=== PATIENT | female | born 1940 ===

== ENCOUNTER 2018-07-29 09:11 | Inpatient (IN) | payer MEDICARE, BC ==
--- NOTE | 2018-07-29 09:49 | ED PDOC ---
Arrival/HPI - General Historian: Patient - History of Present Illness Narrative History of Present Illness (Text): 07/29/18 09:55 77yo female with pmhx of Ulcerative Colitis who present with complaint of right flank pain x 3days. States she saw her Urologist on Friday, but her pain became more constant and worse today. Reports history of kidney stone 3years ago. Denies hematuria, fever, chills, nausea,vomiting, dysuria, urinary frequency/hesitancy, chest pain, SOB, ripping/tearing upper back pain. Past Medical History - Provider Review Nursing Documentation Reviewed: Yes - Infectious Disease Hx of Infectious Diseases: None - Tetanus Immunization Tetanus Immunization: Unknown - Past Medical History Past Medical History: No Previous - Cardiac Hx Cardiac Disorders: No - Pulmonary Hx Respiratory Disorders: No - Neurological Hx Neurological Disorder: No - HEENT Hx HEENT Disorder: No - Renal Hx Renal Disorder: No Hx Kidney Stones: No - Endocrine/Metabolic Hx Endocrine Disorders: No - Hematological/Oncological Hx Blood Disorders: No - Integumentary Hx Dermatological Disorder: No - Musculoskeletal/Rheumatological Hx Musculoskeletal Disorders: Yes Hx Falls: Yes - Gastrointestinal Hx Crohn's Disease: Yes Hx Diverticulitis: No Hx Gall Bladder Disease: No Hx Gastritis: No Hx Pancreatitis: No - Genitourinary/Gynecological Hx Genitourinary Disorders: No (Kidney stones last 2013) - Psychiatric Hx Depression: No Hx Substance Use: No - Past Surgical History Past Surgical History: No Previous - Surgical History Hx Section: Yes - Anesthesia Hx Anesthesia: No Hx Anesthesia Reactions: No Hx Malignant Hyperthermia: No - Suicidal Assessment Feels Threatened In Home Enviroment: No Family/Social History - Physician Review Nursing Documentation Reviewed: Yes Family/Social History: Unknown Family HX Smoking Status: Never Smoked Hx Alcohol Use: No Hx Substance Use: No Allergies/Home Meds Allergies/Adverse Reactions: Allergies No Known Allergies Allergy (Verified 07/29/18 12:06) Home Medications: Home Meds Medication Instructions Recorded Confirmed Nortriptyline HCl [Pamelor] 25 mg PO BID 12/26/16 02/21/18 Gabapentin [Neurontin] 100 mg PO DAILY 08/10/17 02/21/18 Shaking Medication 12/01/17 Review of Systems - Physician Review All systems were reviewed & negative as marked: Yes - Review of Systems Constitutional: Normal Eyes: Normal ENT: Normal Respiratory: Normal Cardiovascular: Normal Gastrointestinal: Abdominal Pain. absent: Constipation, Diarrhea, Nausea, Vomiting, Hematochezia, Hematemesis Genitourinary Female: Normal Musculoskeletal: Normal Skin: Normal Neurological: Normal Endocrine: Normal Hemo/Lymphatic: Normal Psychiatric: Normal Physical Exam Vital Signs Reviewed: Yes Temperature: Afebrile Blood Pressure: Normal Pulse: Regular Respiratory Rate: Normal Appearance: Positive for: Well-Appearing, Non-Toxic, Comfortable Pain Distress: None Mental Status: Positive for: Alert and Oriented X 3 - Systems Exam Head: Present: Atraumatic, Normocephalic Pupils: Present: PERRL Extroacular Muscles: Present: EOMI Conjunctiva: Present: Normal Mouth: Present: Moist Mucous Membranes Neck: Present: Normal Range of Motion Respiratory/Chest: Present: Clear to Auscultation, Good Air Exchange. No: Respiratory Distress, Accessory Muscle Use Cardiovascular: Present: Regular Rate and Rhythm, Normal S1, S2. No: Murmurs Abdomen: Present: Tenderness (Right flank), Normal Bowel Sounds, Guarding (Voluntary), Other (soft). No: Distention, Peritoneal Signs, Rebound, McBurney's Point Tender, Rovsing's Sign Present Back: Present: CVA Tenderness (Right) Upper Extremity: Present: Normal Inspection. No: Cyanosis, Edema Lower Extremity: Present: Normal Inspection. No: Edema Neurological: Present: GCS=15, CN II-XII Intact, Speech Normal Skin: Present: Warm, Dry, Rashes (Dermatomal vesicular rash noted on right sided back), Normal Color Psychiatric: Present: Alert, Oriented x 3, Normal Insight, Normal Concentration Medical Decision Making ED Course and Treatment: 07/29/18 11:26 77yo female who present with 3days history of right flank pain. Labs EKG CXR Abdominal/Pelvic CT 1 L NS, Toradol Will reassess Differential dx: includes Renal colic Vs colitis Vs cholelithatisis EKG NSR @ 65bpm 07/29/18 13:57 Rash was noted on PE which is likely shingles. Lab was reviewed and all unremarkable Abdominal/pelvic CT IMPRESSION: There is mild chronic dilatation of the right renal pelvis. There is a 2 mm stone or calcification in the region of the right UVJ. This finding is unchanged since 2013 and is of doubtful significance. Multiple phleboliths are also seen. The appendix is mildly enlarged measuring between 8 and 10 mm in diameter.. There is some mural thickening. There are no surrounding inflammatory changes. Findings are suspicious for early appendicitis. Clinical correlation is suggested Chest xray IMPRESSION: No active disease. result was DW the pt. Her main was controlled in ED but she still continue to complain of pain. Pt will be admitted secondary to above CT findings. Zosyn ordered. Case was DW Dr. Morgan who accepted pt into his service. He requested Dr. Locke consult and it was placed. - RAD Interpretation Radiology Orders: 07/29/18 09:46 ABD & PELVIS W/O PO OR IV CONT [CT] Stat - Medication Orders Current Medication Orders: Ketorolac Tromethamine (Toradol) 15 mg IVP STAT STA Stop: 07/29/18 09:49 Disposition/Present on Arrival - Present on Arrival Any Indicators Present on Arrival: No History of DVT/PE: No History of Uncontrolled Diabetes: No Urinary Catheter: No History Surgical Site Infection Following: None - Disposition Have Diagnosis and Disposition been Completed?: Yes Diagnosis: Appendicitis Disposition: HOSPITALIZED Disposition Time: 11:40 Patient Plan: Admission Patient Problems: Current Active Problems Problem Status Onset Appendicitis Acute Condition: FAIR
[2018-07-29 10:01] VITALS: BMI 20.6
--- NOTE | 2018-07-29 10:32 | CT ---
Date of service: 07/29/2018 PROCEDURE: CT Abdomen and Pelvis without intravenous contrast HISTORY: Right flank pain COMPARISON: 05/08/2014 TECHNIQUE: Without contrast. Contrast dose: Radiation dose: Total exam DLP = 206.59 mGy-cm. This CT exam was performed using one or more of the following dose reduction techniques: Automated exposure control, adjustment of the mA and/or kV according to patient size, and/or use of iterative reconstruction technique. FINDINGS: LOWER THORAX: Unremarkable. LIVER: Unremarkable. No gross lesion or ductal dilatation. GALLBLADDER AND BILE DUCTS: Unremarkable. PANCREAS: Unremarkable. No gross lesion or ductal dilatation. SPLEEN: Unremarkable. ADRENALS: Unremarkable. No mass. KIDNEYS AND URETERS: There is mild chronic dilatation of the right renal pelvis. There is a 2 mm stone or calcification in the region of the right UVJ. This finding is unchanged since 2013 and is of doubtful significance. Multiple phleboliths are also seen. VASCULATURE: Unremarkable. No aortic aneurysm. Aortic calcifications BOWEL: Unremarkable. No obstruction. No gross mural thickening. APPENDIX: The appendix is mildly enlarged measuring between 8 and 10 mm in diameter.. There is some mural thickening. There are no surrounding inflammatory changes. Findings are suspicious for early appendicitis. Clinical correlation is suggested PERITONEUM: Unremarkable. No free fluid. No free air. LYMPH NODES: Unremarkable. No enlarged lymph nodes. BLADDER: Unremarkable. REPRODUCTIVE: Unremarkable. BONES: No acute fracture. OTHER FINDINGS: None. IMPRESSION: There is mild chronic dilatation of the right renal pelvis. There is a 2 mm stone or calcification in the region of the right UVJ. This finding is unchanged since 2013 and is of doubtful significance. Multiple phleboliths are also seen. The appendix is mildly enlarged measuring between 8 and 10 mm in diameter.. There is some mural thickening. There are no surrounding inflammatory changes. Findings are suspicious for early appendicitis. Clinical correlation is suggested
[2018-07-29 10:52] LABS: BASO # 0.04 K/mm3 (0.0-2.0); BASO % 0.8 % (0.0-3.0); EOS # 0.2 (0.0-0.7); EOS % 4.4 % (1.5-5.0); GRAN # 1.73 (1.4-6.5); GRAN % 34.7 % (50.0-68.0); HEMOGLOBIN 12.5 g/dL (12.0-16.0); LYMPH # 2.2 (1.2-3.4); LYMPH % 43.8 % (22.0-35.0); MEAN CELL VOLUME 96.7 fl (80.0-105.0); MEAN CORPUSCULAR HEMOGLOBIN 31.6 pg (25.0-35.0); MEAN CORPUSCULAR HGB CONC 32.7 g/dl (31.0-37.0); MONO # 0.8 (0.1-0.6); MONO % 16.3 % (1.0-6.0); RBC 3.95 10^6/uL (3.5-6.1); RED CELL DISTRIBUTION WIDTH 13.4 % (11.5-14.5)
[2018-07-29 10:56] LABS: INR 1.05; PARTIAL THROMBOPLASTIN TIME 25.8 Seconds (25.1-36.5); PROTHROMBIN TIME 12.1 SECONDS (9.4-12.5)
[2018-07-29 11:12] LABS: ALB/GLOB RATIO 1.2 (1.1-1.8); ALT/SGPT 12 U/L (7-56); AMYLASE 93 U/L (35-125); AST/SGOT 21 U/L (14-36); BLOOD UREA NITROGEN 16 mg/dL (7-21); CALCIUM 9.2 mg/dL (8.4-10.5); GFR NON-AFRICAN AMERICAN > 60; LIPASE 39 U/L (23-300)
[2018-07-29] MEDS: Sodium Chloride 0.9% 1,000 ML IV SCH ×2 (11:21→19:09)
[2018-07-29 11:23] LABS: TROPONIN I < 0.01 ng/mL
[2018-07-29] MEDS ORDERED: Piperacillin/Tazobact 3.375 gm 100 ML IVPB STA ×2 (11:41→12:15)
--- NOTE | 2018-07-29 11:57 | CP.PCM.HP ---
History of Present Illness - History of Present Illness History of Present Illness: 77 y/o female, with past medical history of ulcerative colitis, kidney stones, chronic recurrent diarrhea presents with right flank pain for the past 3 days. Patient states she saw her Urologist on Friday. Her pain became worse today and she decided to come in. Patient Denies fever, chills, nausea, vomiting, blood in urine, urinary frequency, trouble urinating, SOB, chest pain, cough, chest pain or any other complaints at this time. Past Patient History - Infectious Disease Hx of Infectious Diseases: None - Tetanus Immunizations Tetanus Immunization: Unknown - Past Medical History & Family History Past Medical History?: Yes - Past Social History Smoking Status: Never Smoked - CARDIAC Hx Cardiac Disorders: No - PULMONARY Hx Respiratory Disorders: No - NEUROLOGICAL Hx Neurological Disorder: No - HEENT Hx HEENT Problems: No - RENAL Hx Chronic Kidney Disease: No Hx Kidney Stones: No - ENDOCRINE/METABOLIC Hx Endocrine Disorders: No - HEMATOLOGICAL/ONCOLOGICAL Hx Blood Disorders: No - INTEGUMENTARY Hx Dermatological Problems: No - MUSCULOSKELETAL/RHEUMATOLOGICAL Hx Musculoskeletal Disorders: Yes Hx Falls: Yes - GASTROINTESTINAL Hx Crohn's Disease: Yes Hx Diverticulitis: No Hx Gall Bladder Disease: No Hx Gastritis: No Hx Pancreatitis: No - GENITOURINARY/GYNECOLOGICAL Hx Genitourinary Disorders: No (Kidney stones last 2013) - PSYCHIATRIC Hx Depression: No Hx Substance Use: No - SURGICAL HISTORY Hx Section: Yes - ANESTHESIA Hx Anesthesia: No Hx Anesthesia Reactions: No Hx Malignant Hyperthermia: No Meds Allergies/Adverse Reactions: Allergies Allergy/AdvReac Type Severity Reaction Status Date / Time No Known Allergies Allergy Verified 07/29/18 10:01 Results - Labs Result Diagrams: 07/29/18 10:40 07/29/18 10:40 Labs: Laboratory Results - last 24 hr 07/29/18 07/29/18 07/29/18 10:40 10:40 10:40 WBC 5.0 RBC 3.95 Hgb 12.5 Hct 38.2 MCV 96.7 MCH 31.6 MCHC 32.7 RDW 13.4 Plt Count 187 MPV 10.0 Gran % 34.7 L Lymph % (Auto) 43.8 H [place] % (Auto) 16.3 H Eos % (Auto) 4.4 Baso % (Auto) 0.8 Gran # 1.73 Lymph # (Auto) 2.2 [place] # (Auto) 0.8 H Eos # (Auto) 0.2 Baso # (Auto) 0.04 PT 12.1 INR 1.05 APTT 25.8 Sodium Potassium Chloride Carbon Dioxide Anion Gap BUN Creatinine Est GFR ( Amer) Est GFR (Non-Af Amer) Random Glucose Lactic Acid 2.0 Calcium Total Bilirubin AST ALT Alkaline Phosphatase Lactate Dehydrogenase Total Creatine Kinase Troponin I Total Protein Albumin Globulin Albumin/Globulin Ratio Amylase Lipase 07/29/18 10:40 WBC RBC Hgb Hct MCV MCH MCHC RDW Plt Count MPV Gran % Lymph % (Auto) [place] % (Auto) Eos % (Auto) Baso % (Auto) Gran # Lymph # (Auto) [place] # (Auto) Eos # (Auto) Baso # (Auto) PT INR APTT Sodium 133 Potassium 4.2 Chloride 99 Carbon Dioxide 26 Anion Gap 12 BUN 16 Creatinine 0.7 Est GFR ( Amer) > 60 Est GFR (Non-Af Amer) > 60 Random Glucose 95 Lactic Acid Calcium 9.2 Total Bilirubin 0.5 AST 21 ALT 12 Alkaline Phosphatase 82 Lactate Dehydrogenase 422 Total Creatine Kinase 64 Troponin I < 0.01 Total Protein 7.4 Albumin 4.0 Globulin 3.4 Albumin/Globulin Ratio 1.2 Amylase 93 Lipase 39
--- NOTE | 2018-07-29 12:44 | CARD ---
APPROVED REPORT Date of service: 07/29/2018 EKG Measurement Heart [id number] <Conclusion> Normal sinus rhythm Normal ECG
--- NOTE | 2018-07-29 13:09 | RAD ---
Date of service: 07/29/2018 HISTORY: admission COMPARISON: No prior. FINDINGS: LUNGS: No active pulmonary disease. PLEURA: No significant pleural effusion identified, no pneumothorax apparent. CARDIOVASCULAR: No aortic atherosclerotic calcification present. Normal cardiac size. No pulmonary vascular congestion. OSSEOUS STRUCTURES: No significant abnormalities. VISUALIZED UPPER ABDOMEN: Normal. OTHER FINDINGS: None. IMPRESSION: No active disease.
--- NOTE | 2018-07-29 13:17 | CP.PCM.CON ---
History of Present Illness - History of Present Illness History of Present Illness: General Surgery Dr. Vasquez 77 y/o F w/ PMHx of nephrolithiasis and colitis presents to the ED c/o R flank pain. Pt states the pain started two days ago (07/27). Pt presented to her urologist Dr. Edge when the pain began and was started on antibiotics. Pt states the pain is constant and describes the pain as burning sensation that radiates from pt's back to front. Pt has never before had this pain. Pt reports pain different than pain from previous kidney stones. Pt reports recent Hx of cough for which she has appt w/ Mortuary Operations Manager this Friday. Pt denies F/C, CP, SOB, N/V, D/C, numbness, weakness, myalgia. PMHx: nephrolithiasis, IBD colitis (c. diff negative 11/2017) Meds: reviewed in chart NKDA PSHx: tubal ligation, colonoscopy (11/2017) SHx: quit smoking 15yrs ago, former 1/2ppd; social EtOH; denies drug use FHx: noncontributory Review of Systems - Review of Systems All systems: reviewed and no additional remarkable complaints except (see HPI) Past Patient History - Infectious Disease Hx of Infectious Diseases: None - Tetanus Immunizations Tetanus Immunization: Unknown - Past Medical History & Family History Past Medical History?: Yes - Past Social History Smoking Status: Never Smoked - CARDIAC Hx Cardiac Disorders: No - PULMONARY Hx Respiratory Disorders: No - NEUROLOGICAL Hx Neurological Disorder: No - HEENT Hx HEENT Problems: No - RENAL Hx Chronic Kidney Disease: No Hx Kidney Stones: No - ENDOCRINE/METABOLIC Hx Endocrine Disorders: No - HEMATOLOGICAL/ONCOLOGICAL Hx Blood Disorders: No - INTEGUMENTARY Hx Dermatological Problems: No - MUSCULOSKELETAL/RHEUMATOLOGICAL Hx Musculoskeletal Disorders: Yes Hx Falls: Yes - GASTROINTESTINAL Hx Crohn's Disease: Yes Hx Diverticulitis: No Hx Gall Bladder Disease: No Hx Gastritis: No Hx Pancreatitis: No - GENITOURINARY/GYNECOLOGICAL Hx Genitourinary Disorders: No (Kidney stones last 2013) - PSYCHIATRIC Hx Depression: No Hx Substance Use: No - SURGICAL HISTORY Hx Section: Yes - ANESTHESIA Hx Anesthesia: No Hx Anesthesia Reactions: No Hx Malignant Hyperthermia: No Meds Allergies/Adverse Reactions: Allergies Allergy/AdvReac Type Severity Reaction Status Date / Time No Known Allergies Allergy Verified 07/29/18 12:06 - Medications Medications: Current Medications Heparin Sodium (Porcine) (Heparin) 5,000 units SC Q12 [facility]; Protocol Sodium Chloride (Sodium Chloride 0.9%) 1,000 mls @ 100 mls/hr IV .Q10H [facility] Last Admin: 07/29/18 11:21 Dose: 100 mls/hr Metronidazole (Flagyl) 500 mg in 100 mls @ 100 mls/hr IVPB Q8 [facility]; Protocol Pantoprazole Sodium (Protonix Inj) 40 mg IVP DAILY [facility] Physical Exam - Constitutional Appears: Toxic, No Acute Distress - Head Exam Head Exam: NORMAL INSPECTION - Eye Exam Eye Exam: Normal appearance - ENT Exam ENT Exam: Mucous Membranes Moist - Respiratory Exam Respiratory Exam: NORMAL BREATHING PATTERN. absent: Accessory Muscle Use, Respiratory Distress - Cardiovascular Exam Cardiovascular Exam: REGULAR RHYTHM. absent: Bradycardia, Tachycardia - GI/Abdominal Exam GI & Abdominal Exam: Soft. absent: Distended, Firm, Guarding, Rebound, Rigid, Tenderness Additional comments: (-) McBurney's point tenderness, (-) Rosving's sign - Extremities Exam Extremities exam: Positive for: normal inspection - Neurological Exam Neurological exam: Alert, Oriented x3 - Psychiatric Exam Psychiatric exam: Normal Affect, Normal Mood - Skin Skin Exam: Dry, Intact, Rash (vesicular rash in dermatomal pattern), Warm Results - Labs Result Diagrams: 07/29/18 10:40 07/29/18 10:40 Labs: Laboratory Results - last 24 hr 07/29/18 07/29/18 07/29/18 10:40 10:40 10:40 WBC 5.0 RBC 3.95 Hgb 12.5 Hct 38.2 MCV 96.7 MCH 31.6 MCHC 32.7 RDW 13.4 Plt Count 187 MPV 10.0 Gran % 34.7 L Lymph % (Auto) 43.8 H [place] % (Auto) 16.3 H Eos % (Auto) 4.4 Baso % (Auto) 0.8 Gran # 1.73 Lymph # (Auto) 2.2 [place] # (Auto) 0.8 H Eos # (Auto) 0.2 Baso # (Auto) 0.04 PT 12.1 INR 1.05 APTT 25.8 Sodium Potassium Chloride Carbon Dioxide Anion Gap BUN Creatinine Est GFR ( Amer) Est GFR (Non-Af Amer) Random Glucose Lactic Acid 2.0 Calcium Total Bilirubin AST ALT Alkaline Phosphatase Lactate Dehydrogenase Total Creatine Kinase Troponin I Total Protein Albumin Globulin Albumin/Globulin Ratio Amylase Lipase 07/29/18 10:40 WBC RBC Hgb Hct MCV MCH MCHC RDW Plt Count MPV Gran % Lymph % (Auto) [place] % (Auto) Eos % (Auto) Baso % (Auto) Gran # Lymph # (Auto) [place] # (Auto) Eos # (Auto) Baso # (Auto) PT INR APTT Sodium 133 Potassium 4.2 Chloride 99 Carbon Dioxide 26 Anion Gap 12 BUN 16 Creatinine 0.7 Est GFR ( Amer) > 60 Est GFR (Non-Af Amer) > 60 Random Glucose 95 Lactic Acid Calcium 9.2 Total Bilirubin 0.5 AST 21 ALT 12 Alkaline Phosphatase 82 Lactate Dehydrogenase 422 Total Creatine Kinase 64 Troponin I < 0.01 Total Protein 7.4 Albumin 4.0 Globulin 3.4 Albumin/Globulin Ratio 1.2 Amylase 93 Lipase 39 - Imaging and Cardiology CT scan - abdomen Status: Image reviewed by me, Report reviewed by me Assessment & Plan - Assessment and Plan (Free Text) Assessment: 77 y/o F w/ R-sided flank pain likley 2/2 new-onset Shingles CTAP read as possible early appendicitis Plan: - hold antibiotics - start Acyclovir - CLD - serial abd exams - PO pain management - no surgical intervention at this time, will reconsider if RLQ pain develops/worsens Will discuss w/ Dr. Christina Sanches DO PGY3
[2018-07-29] MEDS ORDERED: metroNIDAZOLE IV 500 mg/100 ml 500 MG/100 ML BAG IVPB SCH ×2 (14:00→22:00)
[2018-07-29 14:13] LABS: PH,URINE 6.5 (4.7-8.0); URINE BILIRUBIN NEGATIVE (NEGATIVE); URINE BLOOD TRACE-INTACT (NEGATIVE); URINE GLUCOSE (UA) NEGATIVE (NEGATIVE); URINE LEUKOCYTE ESTERASE TRACE Leu/uL (NEGATIVE); URINE PROTEIN NEGATIVE mg/dL (<30 mg/dL); URINE UROBILINOGEN 0.2 E.U./dL (<1 E.U./dL)
[2018-07-29 14:19] LABS: URINE APPEARANCE CLEAR (CLEAR); URINE COLOR LIGHT YELLOW (YELLOW)
[2018-07-29 14:29] LABS: URINE BACTERIA NEG (NEG); URINE EPITHELIAL CELLS 0 - 2 /hpf (0-5); URINE RBC 0 - 2 /hpf (0-2); URINE WBC 0 - 2 /hpf (0-6)
[2018-07-29] MEDS ORDERED: Influenza Vaccine 60 mcg/0.5 mL SYR (4YR UP) IM ONE (18:17)
[2018-07-29] MEDS ORDERED: Pneumococcal 23-Valent Vaccine IM ONE (18:17)
[2018-07-29] MEDS: Acyclovir 500 MG in Sodium Chloride 0.9% 100 ML IV SCH ×2 (19:07→23:10)
[2018-07-29] MEDS ORDERED: cefTRIAXone 1 gm 1 GM/100 ML BAG IVPB SCH (21:00)
[2018-07-30] MEDS: Acyclovir 500 MG in Sodium Chloride 0.9% 100 ML IV SCH ×3 (05:51→21:55)
[2018-07-30 07:39] LABS: BASO # 0.02 K/mm3 (0.0-2.0); BASO % 0.5 % (0.0-3.0); EOS # 0.3 (0.0-0.7); EOS % 6.2 % (1.5-5.0); GRAN # 1.47 (1.4-6.5); GRAN % 36.1 % (50.0-68.0); HEMOGLOBIN 11.4 g/dL (12.0-16.0); LYMPH # 1.9 (1.2-3.4); LYMPH % 47.3 % (22.0-35.0); MEAN CELL VOLUME 94.3 fl (80.0-105.0); MEAN CORPUSCULAR HEMOGLOBIN 30.8 pg (25.0-35.0); MEAN CORPUSCULAR HGB CONC 32.7 g/dl (31.0-37.0); MEAN PLATELET VOLUME 9.8 fl (7.0-11.0); MONO # 0.4 (0.1-0.6); MONO % 9.9 % (1.0-6.0); RBC 3.7 10^6/uL (3.5-6.1); RED CELL DISTRIBUTION WIDTH 13.3 % (11.5-14.5); WHITE BLOOD COUNT 4.1 10^3/uL (4.5-11.0)
[2018-07-30 08:18] LABS: HDL CHOLESTEROL 85 mg/dL (29-60)
[2018-07-30 08:23] LABS: ALB/GLOB RATIO 1.2 (1.1-1.8); ALBUMIN 3.6 g/dL (3.0-4.8); ALT/SGPT 24 U/L (7-56); AST/SGOT 18 U/L (14-36); BILIRUBIN,DIRECT 0.3 mg/dL (0.0-0.4); BLOOD UREA NITROGEN 14 mg/dL (7-21); CALCIUM 8.9 mg/dL (8.4-10.5); GFR NON-AFRICAN AMERICAN > 60
[2018-07-30 08:29] LABS: LDL CHOLESTEROL 78 mg/dL (0-129)
--- NOTE | 2018-07-30 08:34 | CP.PCM.PN ---
Subjective - Date & Time of Evaluation Date of Evaluation: 07/30/18 Time of Evaluation: 07:00 - Subjective Subjective: 77 y/o female seen and examined at bedside today. Patient reports no abdominal pain. Patient denies nausea, vomiting, diarrhea, fever, or chills. Patient has not had a bowel movement since arriving at hospital. Objective - Vital Signs/Intake and Output Vital Signs (last 24 hours): Temp Pulse Resp BP Pulse Ox 98.6 F 75 18 134/71 100 07/29/18 09:11 07/29/18 15:40 07/29/18 17:45 07/29/18 15:40 07/29/18 15:40 - Medications Medications: Current Medications Acetaminophen (Tylenol 325mg Tab) 650 mg PO Q6 PRN PRN Reason: TEMP>=99.5F Acetaminophen (Tylenol 650 Mg Supp) 650 mg RC Q6H PRN PRN Reason: TEMP>=99.5F Alendronate Sodium (Fosamax) 70 mg PO QWK [facility] Heparin Sodium (Porcine) (Heparin) 5,000 units SC Q12 [facility]; Protocol Last Admin: 07/29/18 23:09 Dose: 5,000 units Sodium Chloride (Sodium Chloride 0.9%) 1,000 mls @ 100 mls/hr IV .Q10H [facility] Last Admin: 07/29/18 19:09 Dose: 100 mls/hr Acyclovir 500 mg/ Sodium (Chloride) 100 mls @ 100 mls/hr IV Q8 [facility]; Protocol Last Admin: 07/30/18 05:51 Dose: 100 mls/hr Metronidazole (Flagyl) 500 mg in 100 mls @ 100 mls/hr IVPB Q8 [facility]; Protocol Last Admin: 07/29/18 22:23 Dose: 100 mls/hr Ceftriaxone Sodium (Rocephin 1 Gram Ivpb) 1 gm in 100 mls @ 100 mls/hr IVPB DAILY [facility]; Protocol Last Admin: 07/29/18 22:25 Dose: 100 mls/hr Nortriptyline HCl (Pamelor) 50 mg PO HS [facility] Ondansetron HCl (Zofran Inj) 4 mg IVP Q4H PRN PRN Reason: Nausea/Vomiting Pantoprazole Sodium (Protonix Inj) 40 mg IVP DAILY [facility] Polyethylene Glycol (Miralax) 17 gm PO DAILY [facility] Pramipexole Dihydrochloride (Mirapex) 0.5 mg PO DAILY [facility] Pregabalin (Lyrica) 25 mg PO BID [facility] Primidone (Mysoline) 50 mg PO BID [facility] Senna/Docusate Sodium (Senokot S 50 Mg-8.6 Mg) 1 tab PO BID BASIA - Labs Labs: 07/30/18 07:00 07/30/18 07:00 PT 12.1 SECONDS (9.4-12.5) 07/29/18 10:40 INR 1.05 07/29/18 10:40 APTT 25.8 Seconds (25.1-36.5) 07/29/18 10:40 - Constitutional Appears: Well, Non-toxic, No Acute Distress - Head Exam Head Exam: ATRAUMATIC, NORMAL INSPECTION, NORMOCEPHALIC - Eye Exam Eye Exam: EOMI, Normal appearance - ENT Exam ENT Exam: Mucous Membranes Moist, Normal Exam - Neck Exam Neck Exam: Full ROM, Normal Inspection - Respiratory Exam Respiratory Exam: NORMAL BREATHING PATTERN. absent: Respiratory Distress - Cardiovascular Exam Cardiovascular Exam: REGULAR RHYTHM. absent: Tachycardia - GI/Abdominal Exam GI & Abdominal Exam: Soft. absent: Distended, Tenderness, Rebound - Extremities Exam Extremities Exam: Normal Inspection. absent: Calf Tenderness, Pedal Edema - Neurological Exam Neurological Exam: Alert, Awake, Oriented x3 - Psychiatric Exam Psychiatric exam: Normal Affect, Normal Mood - Skin Skin Exam: Dry, Warm Additional comments: [id number] lesion extending in a horizontal pattern across the right flank at le bill T12; erythematous, with 5 scabbed over eruptions; no drainage from lesion; non-tender to palpation Assessment and Plan - Assessment and Plan (Free Text) Assessment: 77 y/o female with PMHx of colitis and nephrolithiasis, admitted for evaluation of possible early appendicitis, and treatment of suspected shingles. Plan: - continue regular diet - f/u labs - f/u varicella zoster titer - continue acyclovir - hold antibiotics to evaluate for progression of symptoms - start colace, senna for constipation - IVF - encourage ambulation - encourage IS use - GI ppx, DVT ppx Will discuss with Dr. Christina Calloway, PGY1
[2018-07-30 08:38] LABS: FREE T4 0.88 ng/dL (0.78-2.19); T4 6.7 ug/dL (5.5-11.0)
--- NOTE | 2018-07-30 08:58 | CP.PCM.PN ---
Subjective - Date & Time of Evaluation Date of Evaluation: 07/30/18 Time of Evaluation: 07:00 - Subjective Subjective: Patient examined at bedside. No acute events overnight. Patient reports no abdominal pain. Denies fevers, chills, nausea, vomiting, diarrhea. Patient denies bowel movement since admission. Objective - Vital Signs/Intake and Output Vital Signs (last 24 hours): Temp Pulse Resp BP Pulse Ox 98.6 F 75 18 134/71 100 07/29/18 09:11 07/29/18 15:40 07/29/18 17:45 07/29/18 15:40 07/29/18 15:40 - Medications Medications: Current Medications Acetaminophen (Tylenol 325mg Tab) 650 mg PO Q6 PRN PRN Reason: TEMP>=99.5F Acetaminophen (Tylenol 650 Mg Supp) 650 mg RC Q6H PRN PRN Reason: TEMP>=99.5F Alendronate Sodium (Fosamax) 70 mg PO QWK [facility] Heparin Sodium (Porcine) (Heparin) 5,000 units SC Q12 [facility]; Protocol Last Admin: 07/29/18 23:09 Dose: 5,000 units Sodium Chloride (Sodium Chloride 0.9%) 1,000 mls @ 100 mls/hr IV .Q10H [facility] Last Admin: 07/29/18 19:09 Dose: 100 mls/hr Acyclovir 500 mg/ Sodium (Chloride) 100 mls @ 100 mls/hr IV Q8 [facility]; Protocol Last Admin: 07/30/18 05:51 Dose: 100 mls/hr Metronidazole (Flagyl) 500 mg in 100 mls @ 100 mls/hr IVPB Q8 [facility]; Protocol Last Admin: 07/29/18 22:23 Dose: 100 mls/hr Ceftriaxone Sodium (Rocephin 1 Gram Ivpb) 1 gm in 100 mls @ 100 mls/hr IVPB DAILY [facility]; Protocol Last Admin: 07/29/18 22:25 Dose: 100 mls/hr Nortriptyline HCl (Pamelor) 50 mg PO HS [facility] Ondansetron HCl (Zofran Inj) 4 mg IVP Q4H PRN PRN Reason: Nausea/Vomiting Pantoprazole Sodium (Protonix Inj) 40 mg IVP DAILY [facility] Polyethylene Glycol (Miralax) 17 gm PO DAILY [facility] Pramipexole Dihydrochloride (Mirapex) 0.5 mg PO DAILY [facility] Pregabalin (Lyrica) 25 mg PO BID [facility] Primidone (Mysoline) 50 mg PO BID [facility] Senna/Docusate Sodium (Senokot S 50 Mg-8.6 Mg) 1 tab PO BID [facility] - Labs Labs: 07/30/18 07:00 07/30/18 07:00 PT 12.1 SECONDS (9.4-12.5) 07/29/18 10:40 INR 1.05 07/29/18 10:40 APTT 25.8 Seconds (25.1-36.5) 07/29/18 10:40 - Constitutional Appears: Non-toxic, No Acute Distress - Head Exam Head Exam: ATRAUMATIC, NORMAL INSPECTION, NORMOCEPHALIC - Eye Exam Eye Exam: EOMI, Normal appearance - ENT Exam ENT Exam: Mucous Membranes Moist, Normal Exam - Neck Exam Neck Exam: Full ROM, Normal Inspection - Respiratory Exam Respiratory Exam: NORMAL BREATHING PATTERN. absent: Respiratory Distress - Cardiovascular Exam Cardiovascular Exam: REGULAR RHYTHM. absent: Tachycardia - GI/Abdominal Exam GI & Abdominal Exam: Soft. absent: Distended, Guarding, Tenderness, Rebound - Extremities Exam Extremities Exam: Normal Inspection. absent: Calf Tenderness, Pedal Edema - Neurological Exam Neurological Exam: Alert, Awake, Oriented x3 - Psychiatric Exam Psychiatric exam: Normal Affect, Normal Mood - Skin Skin Exam: Dry, Warm Additional comments: 20 x 1cm horizontal lesion across right flank. Erythematous, with 4-5 scabbed over blisters noted. No active drainage. Non-tender to palpation. Assessment and Plan - Assessment and Plan (Free Text) Assessment: 77 year old female with PMHx of colitis and nephrolithiasis admitted for evaluation of possible early acute appendicitis, and treatment of shingles Plan: - continue regular diet - f/u labs - f/u varicella zoster titer - continue acyclovir - hold antibiotics to evaluate for progression of symptoms - start colace, senna for constipation - IVF - encourage ambulation - encourage IS use - GI ppx, DVT ppx Will discuss with Dr. Christina Calloway, PGY1
[2018-07-30] MEDS ORDERED: Magnesium Sulfate 2 gm/50 ml 2 GM/50 ML BAG IVPB ONE (09:03)
--- NOTE | 2018-07-30 10:20 | PN ---
DATE: 07/30/2018 LOCATION: Patient is in room 574, bed 2. SUBJECTIVE: Overnight nurse's notes were reviewed. No adverse events were documented. The patient had some right flank pain. Overnight nurse's notes were reviewed. OBJECTIVE: VITAL SIGNS: Vital signs over the last 12 hours to 24 hours were reviewed. T-max 98.6, blood pressure 139/71, respirations 18, O2 sat 100%. HEENT: Head: Normocephalic, atraumatic. HEENT examination shows pinkish pale conjunctivae. Anicteric sclerae. No oropharyngeal lesion. No neck rigidity. CHEST: Kyphosis. LUNGS: Shows no rales, crackles or wheezing. CARDIOVASCULAR: S1, S2. No audible murmur, gallop or rub appreciated at this time. ABDOMEN: Soft. Positive bowel sounds. Positive suprapubic right flank tenderness. Positive right lower quadrant tenderness. Positive right posterior flank skin lesion noted which is tender to touch. Positive hyperesthesia noted. Questionable right costovertebral angle tenderness noted. LUNGS: Examination shows no audible rales, crackles or wheezing. GENITALIA: Female. RECTAL: Deferred. EXTREMITIES: Shows no pitting edema, no calf tenderness, no Homans' signs. NEUROLOGIC: The patient is alert, awake, oriented x3. Cranial nerves II-XII grossly intact. Motor strength is 5/5. Gait examination is not tested. VASCULAR: Palpable pulses. PSYCHIATRIC: Negative for anxiety, depression. Negative for suicidal, homicidal ideation. Negative for auditory visual hallucinations. DIAGNOSTICS: In 07/30, WBC 4.1, hemoglobin/hematocrit 11.4, 35, platelet 195,000. Sodium 37, potassium 4.1, chloride 102, CO2 28, BUN 14, creatinine 0.6. LFTs are within normal limit. Glucose 90, calcium 8.9, magnesium 1.8, cholesterol 184, LDL 78, HDL 85, TSH 2.55, T4 6.7. Urinalysis shows small amount of blood and some leukocyte esterase. CT scan of the abdomen, pelvis was reviewed which shows right ureterovesical junction kidney stone with chronic dilatation of the right renal pelvis, questionable suspicious appendicitis with multiple nephrolithiasis. IMPRESSION AND PLAN: 1. Right lower quadrant and right flank pain. 2. Right flank shingles with herpes zoster. 3. Right flank area herpetic neuralgia with hyperesthesia. 4. Leukopenia. 5. Anemia. 6. Hyperlipidemia. 7. Right ureterovesicular junction nephrolithiasis with chronic dilatation of the right renal pelvis. 8. Questionable appendicitis. 9. Multiple nephrolithiasis. 10. History of ulcerative colitis, history of hypovitaminosis D, history of deep vein thrombosis, history of osteoporosis, history of nephrolithiasis, history of upper extremity tremors. PLAN: Plan at this time, the patient is to be continued on IV fluid. The patient is to be continued on IV antibiotics as per Infectious Disease. The patient is also started on acyclovir with weight adjusted doses every 8 hours. The patient started on Lyrica 25 mg twice a day. The patient is started on GI, DVT prophylaxis. The patient is started on IV antibiotics as per Infectious Disease recommendation. The patient has been ordered out of bed to chair. The patient has been ordered physical therapy, occupational therapy, ambulation therapy, gait training. The patient has been ordered TCU evaluation. The patient will be continued on the therapeutic intervention as per the MAR of today. The patient was seen and evaluated yesterday and today. The patient has been updated about her condition, diagnosis, test results, recommendation at length and all questions concerned answered. The patient will be continued on medications as per the MAR. The patient's IV antibiotic duration will be determined and recommended by the Infectious Disease. The patient's blood cultures and cultures which were done in the emergency room will be reviewed when available. Dictated and electronically signed, not read. Adelso Morgan MD [email or web address]
[2018-07-30] MEDS: Sodium Chloride 0.9% 1,000 ML IV SCH ×2 (11:13→21:56)
[2018-07-30] MEDS: POLYETHYLENE GLYCOL 3350 17 GM/Dose PACKET PO SCH (11:14)
[2018-07-30] MEDS: Docusate-Senna 50 mg-8.6 mg Tab PO SCH ×2 (11:14→17:40)
--- NOTE | 2018-07-30 12:01 | HP ---
DATE OF EXAM: 07/30/2018 HISTORY OF PRESENT ILLNESS: The patient is a 77-year-old female presented to the [facility] Emergency Room as a walk-in patient complaining of right lower quadrant right flank pain. The pain is about 10/10. Pain duration is not completely clear, but according to the ER evaluation, the patient presented with symptoms of 3 days. The patient also stated that she is seen by Dr. North, her urologist, on Friday and the patient was getting worse. The patient was seen by Dr. North for her history of kidney stones. REVIEW OF SYSTEMS: A 14-system review was done, pertinent positives and negatives dictated above. CODE STATUS: Full code. ALLERGIES: NONE. Height is 5 feet 2 inches. Weight is 130. BMI is 20.7. HOME MEDICATIONS: Vitamin D 50,000 every month, Zofran 4 mg every 8 p.r.n., Fosamax 70 mg weekly, Xyzal 5 mg daily, Mirapex 0.5 mg daily, Levaquin 500 mg daily, Mysoline 50 mg twice a day, Pamelor 50 mg at bedtime. SOCIAL HISTORY: Positive for white wine drinking daily and positive for former smoker. MENSTRUAL HISTORY: Postmenopausal. OCCUPATIONAL HISTORY: Disabled. PAST MEDICAL AND SURGICAL HISTORY: History of ulcerative colitis, history of hypovitaminosis D, history of osteoporosis, history of upper extremity tremors, questionable history of deep venous thrombosis, history of C. diff colitis, history of nephrolithiasis, history of debilitation, history of , history of former nicotine dependence, history of tonsillectomy, tubal ligation, cataract surgery. The patient's past medical history is significant for history of degenerative joint disease. The patient's past medical history is significant for history of leukopenia, history of neutropenia, history of microscopic hematuria, history of urinary tract infection, history of hysterectomy, history of mural thickening of the colon, history of chronic distention of the appendix, history of extensive colitis, history of hepatic steatosis, history of right hydronephrosis, history of bilateral renal cortical atrophy, history of lumbar spine degenerative disk disease, history of pseudomembranous colitis, history of recent colonoscopy done by Dr. Whitaker in December, history of distal rectal ulcer, history of diffuse colonic inflammation, history of asthma, history of diffuse colitis, history of multiple colonoscopies. The patient was seen in stretcher #5 in the emergency room. PHYSICAL EXAMINATION: VITAL SIGNS: T-max is 98.6; heart rate of 75-76; blood pressure of 156/76, 134/71; respiration 18; O2 sat 100%. Head examination normocephalic, atraumatic. HEENT examination shows pinkish conjunctivae. Dry oral mucosa. NECK: No neck rigidity. CHEST: Kyphosis. LUNGS: Show no rales, crackles or wheezing. CARDIOVASCULAR: S1, S2, regular rhythm. No audible murmur, gallop or rub. ABDOMEN: Soft. Positive bowel sounds. Positive right lower quadrant right flank tenderness. Positive right posterior flank skin lesions, which has hyperesthesia and appears to have shingles.. Genitalia: Female. Rectal examination is deferred. EXTREMITIES: Extremity shows no pitting edema, no calf tenderness, no Homans sign. NEUROLOGICAL: The patient is alert, awake, oriented x3, is able to move upper and lower extremities without assistance. Gait examination is not tested. VASCULAR: Palpable pulses. Cranial nerves II-XII intact. PSYCHIATRIC: Negative. LABORATORY DATA: On 07/30/2018, WBC 5.0, hemoglobin/hematocrit 12.5/38.2, platelets 187,000. PT/PTT 12.1/25.8. Sodium 133, potassium 4.2, chloride 99, CO2 of 26, anion gap 12, BUN 16, creatinine 0.7, GFR is greater than 60, glucose 95. Lactic acid 2.0. Calcium 9.2. LFTs are normal. Troponin is negative. Amylase and lipase is negative. Urine pH is 6.5, specific gravity 1.010, intact blood, trace leukocyte esterase. DIAGNOSTICS: CT of the abdomen and pelvis and chest x-ray was reviewed. EKG was done in the emergency room, which was reviewed. IMPRESSION AND PLAN: 1. Right flank pain, etiology unclear. 2. Possible right posterior flank herpes zoster and shingles. 3. Possible hepatic neuralgia. 4. Right renal pelvis chronic dilatation with a 2-mm stone in the region of the right ureterovesicular junction, unchanged. 5. Multiple nephrolithiasis. 6. Enlarged appendix between 8-10 mm with some mural thickening, suspicious for early appendicitis. This finding has been already present in the previous CAT scan of 02/2018. 7. Questionable hypertension. 8. Mild lymphocytosis. 9. Microscopic hematuria, pyuria. 10. Questionable constipation. 11. History of upper extremity tremors. PLAN: At this time, the patient will be admitted to [facility]. The patient has been ordered hepatitis panel. The patient has been ordered flow cytometry. The patient has been ordered serial labs, hemoglobin A1c, vitamin D, HIV, varicella antibody, CBC. blood and urine cultures ordered. Current consultation: Gastroenterology, Infectious Disease and Surgery has been ordered. RPR ordered. The patient is presently started on Flagyl 500 IV every 8, heparin 5000 subcutaneously every 12, Lyrica 25 twice a day, MiraLax 17 g daily, Mirapex 0.5 daily, Mysoline 50 twice a day, Pamelor 50 mg at bedtime, Protonix 40 mg daily, Rocephin 1 g IV daily, Senokot 1 tablet b.i.d., 0.9 normal saline at 100 mL an hour, Tylenol p.o. suppository every 6 p.r.n., Zofran 4 IV every 4. The patient received Zosyn in the emergency room. The patient started on Zovirax 500 mg IV every 8, incentive spirometry. The patient has been ordered regular diet at present. Head of the bed at 30 degrees, out of bed, SKYLAR stockings, physical therapy, occupational therapy all ordered. The patient has been explained about the details of her medical condition, diagnosis, treatment plan, management plan explained to the patient at length and all questions concerned answered, which she acknowledged and understood. At present, the patient will be admitted to [facility] for further management and treatment. The patient's further management and treatment will be dependent upon the patient's clinical condition, hemodynamic status and as per the patient's response to therapeutic intervention, as per the patient's diagnostic test results, as per Gastroenterology, Surgery and Infectious Disease recommendation. Dictated and electronically signed, not read. Adelso Morgan MD
[2018-07-30 12:39] LABS: HEPATITIS B SURFACE AG Negative (NEGATIVE)
[2018-07-30 12:46] LABS: HEPATITIS A IGM NEGATIVE (NEGATIVE); HEPATITIS B CORE AB NEGATIVE (NEGATIVE)
[2018-07-30 12:57] LABS: HEPATITIS C ANTIBODY NEGATIVE (NEGATIVE)
--- NOTE | 2018-07-30 13:00 | CON ---
DATE: 07/30/2018 The patient seen earlier today in 574, bed 2. CHIEF COMPLAINT: Right flank pain times several days. HISTORY OF PRESENT ILLNESS: This is a 77-year-old [place] female with history of ulcerative colitis, on no medications for ulcerative colitis who was also has a history of C. Diff, history of DVT, history of kidney stones and cataracts who was admitted with flank pain and had a CAT scan of the questionable appendicitis. Infectious disease consultation requested. The patient denies any nausea, no vomiting. This morning, she actually did not have any abdominal pain. No fevers and chills. No dysuria or frequency. No headaches and no blurred vision. REVIEW OF SYSTEMS: A 14-point review of systems is performed. PAST MEDICAL HISTORY: Significant for ulcerative colitis, on no therapies; history of pseudomembranous colitis; history of DVT; kidney stones and cataracts. PAST SURGICAL HISTORY: Significant for tubal ligation, colonoscopy, bilateral cataract surgery and tonsillectomy. ALLERGIES: THE PATIENT HAS NO KNOWN ALLERGIES. MEDICATIONS: At home include; the patient's medications are reviewed and Levaquin in the past, Zofran, and Pamelor. PHYSICAL EXAMINATION: GENERAL: The patient is in bed, answering questions appropriately with a temperature of 98, pulse rate of 76, respiratory rate of 18 and blood pressure is 150/70. HEENT: Unremarkable. NECK: Supple. LUNGS: Have decreased breath sounds. HEART: Normal S1, S2. ABDOMEN: Soft and nontender. No organomegaly. No rebound. Completely benign exam. Examination of the flank reveals herpetic dermatomal rash, one dermatome travels on the right flank and . LABORATORY EXAMINATION: Reveals a white count of 5000, hemoglobin of 12. Coagulation is noted. Chemistries reveals the creatinine is normal. Cholesterol is noted and urinalysis is unremarkable. The patient had a CAT scan of the abdomen and pelvis which is noted and the patient also had a chest x-ray. ASSESSMENT AND PLAN: A 77-year-old female with right flank, herpes zoster. Currently on acyclovir, maybe able to switch to p.o. acyclovir. We will continue to have the patient on isolation and case discussed with Dr. Morgan who happened to be in the room at that time. We will follow with you. Marcos Smith MD [facility] # [id number]
[2018-07-30] MEDS ORDERED: Morphine 2 mg/ml ISec IVP STA (23:57)
--- NOTE | 2018-07-31 00:13 | CON ---
DATE: 07/30/2018 GASTROENTEROLOGY CONSULTATION REQUESTING PHYSICIAN: Adelso Morgan MD HISTORY OF PRESENT ILLNESS: I have been asked to see this 77-year-old female with a history of ulcerative colitis, not on any maintenance ulcerative colitis medications, being followed by stone crusher operator, Dr. Zeyad Whitaker on the outside, who comes to the hospital with flank pain. The patient states that the flank pain started approximately 2 days ago. The pain is constant and described as a burning sensation in the right flank radiating around to the right front. She has a history of kidney stones and was being seen by Dr. North. The patient had a colonoscopy several months ago by Dr. Zeyad Whitaker, which showed that the patient did not have any active colitis. He recommended that she not take any medications for the ulcerative colitis. She currently denies any rectal bleeding, diarrhea or abdominal cramps. CT scan of the abdomen and pelvis shows a mildly dilated appendix without any periappendiceal inflammation. She was noted to have a vesicular rash in her right flank. PAST MEDICAL HISTORY: As above. Again, she has a history of quiescent ulcerative colitis and kidney stones. PAST SURGICAL HISTORY: Notable for tubal light ligation. SOCIAL HISTORY: She is a former cigarette smoker, having quit 15 years ago. She consumes alcohol socially. FAMILY HISTORY: Noncontributory. REVIEW OF SYSTEMS: A 14-point review of systems is notable for right flank pain. PHYSICAL EXAMINATION: GENERAL: A well-developed female lying in bed in no acute distress. VITAL SIGNS: Reveal temperature of 97.6, blood pressure 118/56, and heart rate 77. HEENT: Reveal sclerae to be white. Conjunctivae pink. NECK: Supple. CHEST: Lungs are clear. HEART: Reveals regular rate and rhythm. ABDOMEN: Soft and nontender. She does have a few vesicles in the right flank. EXTREMITIES: Show no edema. LABORATORY DATA: Reveal white blood cell count 4.1, hemoglobin 14.1, and platelet count 195,000. Chemistries revealed normal electrolytes. Serologies show normal hepatitis serology. CT scan of the abdomen and pelvis reveal slightly enlarged appendix with some mural thickening without any surrounding inflammatory changes. She does have a right kidney stone with mild chronic dilatation of the right renal pelvis. IMPRESSION: This is a 77-year-old female with right flank pain, most likely secondary to shingles. She does have vesicles in the right flank. She does have a history of ulcerative colitis, which is not active at this time and she is currently not taking any medications on the recommendations of her stone crusher operator, Dr. Whitaker. RECOMMENDATIONS: 1. Continue acyclovir for treatment of shingles. 2. The patient is not currently on any medications for ulcerative colitis as recent colonoscopy shows that the patient has an active disease. Recommendations are no further GI workup is planned at this time. She does not appear to have an acute appendicitis. The patient has been asked to follow up with her stone crusher operator, Dr. Whitaker as an outpatient. Angelo Elam MD
[2018-07-31] MEDS: Sodium Chloride 0.9% 1,000 ML IV SCH (03:00)
[2018-07-31] MEDS: Acyclovir 500 MG in Sodium Chloride 0.9% 100 ML IV SCH (06:20)
[2018-07-31 07:21] LABS: BASO # 0.02 K/mm3 (0.0-2.0); BASO % 0.6 % (0.0-3.0); EOS # 0.2 (0.0-0.7); EOS % 5.8 % (1.5-5.0); GRAN # 1.07 (1.4-6.5); GRAN % 31.1 % (50.0-68.0); HEMOGLOBIN 11.6 g/dL (12.0-16.0); LYMPH # 1.7 (1.2-3.4); LYMPH % 50.6 % (22.0-35.0); MEAN CELL VOLUME 93.3 fl (80.0-105.0); MEAN CORPUSCULAR HEMOGLOBIN 31.1 pg (25.0-35.0); MEAN CORPUSCULAR HGB CONC 33.3 g/dl (31.0-37.0); MEAN PLATELET VOLUME 9.8 fl (7.0-11.0); MONO # 0.4 (0.1-0.6); MONO % 11.9 % (1.0-6.0); RBC 3.73 10^6/uL (3.5-6.1); RED CELL DISTRIBUTION WIDTH 13.1 % (11.5-14.5); WHITE BLOOD COUNT 3.4 10^3/uL (4.5-11.0)
[2018-07-31] MEDS ORDERED: Pantoprazole 40 mg EC Tab PO SCH (07:30)
[2018-07-31 08:18] LABS: ALB/GLOB RATIO 1.1 (1.1-1.8); ALBUMIN 3.2 g/dL (3.0-4.8); ALT/SGPT 23 U/L (7-56); AST/SGOT 21 U/L (14-36); BILIRUBIN,DIRECT 0.1 mg/dL (0.0-0.4); BLOOD UREA NITROGEN 10 mg/dL (7-21); CALCIUM 8.7 mg/dL (8.4-10.5); GFR NON-AFRICAN AMERICAN > 60
[2018-07-31 08:42] VITALS: BP 124/62; PULSE 70; RESP 20; TEMP 98.3; O2SAT 95
[2018-07-31] MEDS: POLYETHYLENE GLYCOL 3350 17 GM/Dose PACKET PO SCH (09:22)
[2018-07-31] MEDS: Docusate-Senna 50 mg-8.6 mg Tab PO SCH (09:24)
--- NOTE | 2018-07-31 10:28 | DS ---
HISTORY OF PRESENT ILLNESS: The patient is seen in room 574, bed 2. The patient is lying in the bed. Overnight nurse's notes were reviewed. There was no distress or any adverse events noted. The patient was seen by Infectious Disease and Gastroenterology. The patient is complaining of right flank burning pain. The patient denies any nausea, vomiting, diarrhea. PHYSICAL EXAMINATION: VITAL SIGNS: T-max 98.3, pulse 70, blood pressure 124/62, respiration 20, O2 sat 95%. HEENT: Head: Normocephalic, atraumatic. HEENT examination shows pinkish conjunctivae. Anicteric sclerae. No oropharyngeal lesion. No neck rigidity. CHEST: Kyphosis. LUNGS: Shows no rales, crackles or wheezing. CARDIOVASCULAR: S1, S2, regular rhythm. ABDOMEN: Soft. Positive bowel sound. Positive right flank vesicular eruptions noted on the right posterior flank area and positive hyperesthesia of the skin noted. Questionable right costovertebral angle tenderness noted. No palpable hepatosplenomegaly noted. No guarding, rigidity. No rebound tenderness. GENITALIA: Female. RECTAL: Deferred. EXTREMITIES: Shows no pitting edema, no calf tenderness, no Homans' sign. NEUROLOGIC: The patient is alert, awake, oriented x3. Motor strength is 5/5 in upper and lower extremities. Gait examination is not tested. DIAGNOSTICS: 07/31, WBC 3.4, hemoglobin and hematocrit 11.6, 34.8, platelets 181,000, lymphocytes 51% lymphs, sodium 134, potassium 3.6, chloride 101, CO2 27, anion gap 11, BUN 10, creatinine 0.5, GFR greater than 60, glucose 92, hemoglobin A1c 5.4, calcium 8.7, magnesium 1.7. LFTs are normal. Vitamin D 25-hydroxy less than 12.8. Thyroid panel is negative. RPR is nonreactive. Hepatitis A, B, C serologies negative. HIV is negative. Varicella IgM is 1844 which is antibody detected, varicella IgM antibody is pending. Urine and blood cultures are negative. IMPRESSION AND PLAN: 1. Right flank herpes zoster with herpetic neuralgia and right flank pain. 2. Leukopenia. 3. Normocytic anemia. 4. Lymphocytosis. 5. Hypovitaminosis D. 6. Microscopic hematuria, pyuria. 7. History of ulcerative colitis. 8. History of nephrolithiasis. 9. Right flank herpes zoster with vesicles. 10. Clostridium difficile colitis, history of former nicotine dependence. PLAN: At this time, plan the patient has been ordered. The patient is currently on Fosamax 70 mg weekly for her osteoporosis, heparin 5000 subcu every 12 hours for DVT prophylaxis, 25 mg twice a day. The patient is on MiraLax 17 g daily, Mirapex 0.5 daily, Mysoline 50 mg twice a day, Pamelor 50 mg at bedtime, Protonix 40 mg daily, Senokot twice a day, IV fluid 0.9 normal saline at 100 mL an hour, Tylenol 650 mg p.o. suppository every 6 hours p.r.n., Zofran 4 mg IV every 6 hours p.r.n., acyclovir 500 mg IV every 8 hours. The patient has been ordered regular diet. The patient has been ordered out of bed ambulation therapy, gait training. The patient has been seen by physical therapist. Physical therapy evaluation recommendation is the patient is cleared for discharge home. The patient is cleared by Infectious Disease and Gastroenterology for discharge home. The patient will be discharged home. DISCHARGE MEDICATIONS: Zovirax ointment to the affected area four times a day, Zovirax 500 mg tablet every 8 hours for 10 days. The patient is to resume Fosamax 70 mg weekly, Drisdol 50,000 units weekly, Xyzal 5 mg daily, Pamelor 50 mg at bedtime, Zofran 4 mg 8 hours p.r.n., Mirapex 0.5 daily, Lyrica 25 mg twice a day, Mysoline 50 mg twice a day. The patient has been discharged home with followup with Dr. Morgan within 1 week. Follow up with Dr. Julianne ZAFAR within 1 week. The patient's discharge medications and ambulatory orders are updated. The patient has been updated about her condition, diagnosis, treatment plan, management plan, and outpatient followup at length, which she acknowledged and understands. The patient was extensively explained about the details of her medical condition, need for outpatient followup was explained to the patient at length and all questions concerned answered. Time spent in the discharge process 45 minutes. Dictated and electronically signed, not read. Adelso MD [facility] # [id number]
--- NOTE | 2018-07-31 11:28 | CP.PCM.PN ---
Subjective - Date & Time of Evaluation Date of Evaluation: 07/31/18 Time of Evaluation: 08:45 - Subjective Subjective: Still with lower back pain on the right side, no fevers. Objective - Vital Signs/Intake and Output Vital Signs (last 24 hours): Temp Pulse Resp BP Pulse Ox 98.3 F 70 20 124/62 95 07/31/18 06:00 07/31/18 06:00 07/31/18 06:00 07/31/18 06:00 07/31/18 06:00 Intake and Output: 07/31/18 07/31/18 06:59 18:59 Intake Total 360 Balance 360 - Medications Medications: Current Medications Acetaminophen (Tylenol 325mg Tab) 650 mg PO Q6 PRN PRN Reason: TEMP>=99.5F Acetaminophen (Tylenol 650 Mg Supp) 650 mg RC Q6H PRN PRN Reason: TEMP>=99.5F Alendronate Sodium (Fosamax) 70 mg PO QWK [facility] Last Admin: 07/30/18 11:16 Dose: 70 mg Heparin Sodium (Porcine) (Heparin) 5,000 units SC Q12 [facility]; Protocol Last Admin: 07/31/18 09:23 Dose: 5,000 units Sodium Chloride (Sodium Chloride 0.9%) 1,000 mls @ 100 mls/hr IV .Q10H [facility] Last Admin: 07/31/18 03:00 Dose: Not Given Acyclovir 500 mg/ Sodium (Chloride) 100 mls @ 100 mls/hr IV Q8 [facility]; Protocol Last Admin: 07/31/18 06:20 Dose: 100 mls/hr Metronidazole (Flagyl) 500 mg in 100 mls @ 100 mls/hr IVPB Q8 [facility]; Protocol Last Admin: 07/29/18 22:23 Dose: 100 mls/hr Ceftriaxone Sodium (Rocephin 1 Gram Ivpb) 1 gm in 100 mls @ 100 mls/hr IVPB DAILY [facility]; Protocol Last Admin: 07/29/18 22:25 Dose: 100 mls/hr Nortriptyline HCl (Pamelor) 50 mg PO HS [facility] Last Admin: 07/30/18 21:55 Dose: 50 mg Ondansetron HCl (Zofran Inj) 4 mg IVP Q4H PRN PRN Reason: Nausea/Vomiting Pantoprazole Sodium (Protonix Ec Tab) 40 mg PO ACB [facility] Last Admin: 07/31/18 09:24 Dose: 40 mg Polyethylene Glycol (Miralax) 17 gm PO DAILY [facility] Last Admin: 07/31/18 09:22 Dose: 17 gm Pramipexole Dihydrochloride (Mirapex) 0.5 mg PO DAILY [facility] Last Admin: 07/30/18 13:39 Dose: 0.5 mg Pregabalin (Lyrica) 25 mg PO BID [facility] Last Admin: 07/31/18 09:23 Dose: 25 mg Primidone (Mysoline) 50 mg PO BID [facility] Last Admin: 07/31/18 09:24 Dose: 50 mg Senna/Docusate Sodium (Senokot S 50 Mg-8.6 Mg) 1 tab PO BID [facility] Last Admin: 07/31/18 09:24 Dose: 1 tab - Labs Labs: 07/31/18 07:00 07/31/18 07:00 PT 12.1 SECONDS (9.4-12.5) 07/29/18 10:40 INR 1.05 07/29/18 10:40 APTT 25.8 Seconds (25.1-36.5) 07/29/18 10:40 - Constitutional Appears: Chronically Ill - Head Exam Head Exam: NORMAL INSPECTION - ENT Exam ENT Exam: Mucous Membranes Moist - Neck Exam Neck Exam: absent: Meningismus - Respiratory Exam Respiratory Exam: Decreased Breath Sounds - Cardiovascular Exam Cardiovascular Exam: +S1, +S2 - GI/Abdominal Exam GI & Abdominal Exam: Soft. absent: Tenderness - Back Exam Additional comments: right lower back area with few crusting vesicular lesions (patterned on one dermatome) Assessment and Plan - Assessment and Plan (Free Text) Plan: Assessment Probable herpes zoster on the right lumbar area, slowly improving ulcerative colitis, not on therapy history of DVT history of kidney stones cataracts S/P tubal ligation S/P tonsillectomy Plan continue Acyclovir and can be switched to Valtrex to complete 7-10 days - advised patient to avoid contact with small children and patients - patient understands and acknowledges
== END 2018-07-31 12:12 | disposition home or self-care (01) | DRG 74 ==
LOC: ED 09:11 → ERH 11:37 → 5RSO 16:01
PROVIDERS: ADMIT Internal Medicine; ATTEND Internal Medicine
DX: B02.29 Other postherpetic nervous system involvement (principal); N20.0 Calculus of kidney; D64.9 Anemia, unspecified; E78.5 Hyperlipidemia, unspecified; M81.0 Age-related osteoporosis without current pathological fracture; E55.9 Vitamin D deficiency, unspecified; D72.820 Lymphocytosis (symptomatic); H26.9 Unspecified cataract; Z87.440 Personal history of urinary (tract) infections; Z86.718 Personal history of other venous thrombosis and embolism; Z87.891 Personal history of nicotine dependence

== ENCOUNTER 2018-12-03 11:36 | Outpatient (CLI) | payer MEDICARE, BC | END 2018-12-03 11:37 | disposition home or self-care (01) | LOC: RAD 11:36 ==

== ENCOUNTER 2019-02-01 10:50 | Outpatient (CLI) | payer MEDICARE, BC | END 2019-02-01 10:51 | disposition home or self-care (01) | LOC: RAD 10:50 ==

== ENCOUNTER 2019-02-02 13:22 | Outpatient (CLI) | payer MEDICARE, BC | END 2019-02-02 13:23 | disposition home or self-care (01) | LOC: RAD 13:22 ==